=== PATIENT | female | born 1980 | race Two or more races ===

== ENCOUNTER 2018-06-30 05:09 | Inpatient (IN) | payer MEDICAID ==
[~2018-06-30] VITALS: Ht 157.5 cm; Wt 72.6 kg
[2018-06-30] MEDS ORDERED: KETOROLAC 30MG/ML VIAL IV ONE (06:15)
[2018-06-30] MEDS ORDERED: ONDANSETRON HCL 4MG/2ML INJ IV ONE (06:15)
[2018-06-30] MEDS ORDERED: SODIUM CHLORIDE 0.9% 1,000 ML IV ONE (06:30)
[2018-06-30 07:32] LABS: BASOPHILS % 0.4 % (0.0-2.0); EOSINOPHILS % 0.4 % (0.0-5.0); HEMATOCRIT. 40.4 % (36.0-48.0); HEMOGLOBIN. 13.8 g/dL (12.0-16.0); LYMPHOCYTES % 10.8 % (20.0-50.0); MEAN CORPUSCULAR HEMOGLOBIN 33.3 pg (28.0-32.0); MEAN CORPUSCULAR VOLUME 97.5 fL (81.0-99.0); MEAN PLATELET VOLUME 9.4 fl (7.4-10.4); MONOCYTES % 8.8 % (2.0-8.0); NEUTROPHILS % 79.6 % (40.0-76.0); PLATELET 304 x1000/uL (130-400); RED BLOOD CELL COUNT 4.14 mill/uL (4.2-5.4); RED CELL DISTRIBUTION WIDTH 13.1 % (11.6-14.6)
[2018-06-30 07:34] LABS: CHLORIDE 103 mEq/L (98-107)
[2018-06-30 07:42] LABS: CLARITY URINE CLEAR (CLEAR); COLOR URINE YELLOW (YELLOW); KETONES URINE NEGATIVE (NEGATIVE); LEUKOCYTE ESTERASE URINE NEGATIVE (NEGATIVE); NITRITE URINE NEGATIVE (NEGATIVE); OCCULT BLOOD URINE NEGATIVE (NEGATIVE); PH URINE 5.5 (4.5-8.0); PROTEIN URINE 2+ (NEGATIVE); UROBILINOGEN URINE 0.2 E.U./dL (0.2-1.0)
[2018-06-30] MEDS ORDERED: MORPHINE SULFATE 4 MG/ML CPJ (NOT FOR IM USE) IV ONE ×2 (11:30→13:15)
[2018-06-30] MEDS ORDERED: MORPHINE SULFATE 10 MG/ML CPJ IV NR (12:47)
[2018-06-30] MEDS ORDERED: PIPERACILLIN/TAZ 3.375G PREMIX 50 ML IV ONE (13:15)
[2018-06-30] MEDS ORDERED: ACETAMINOPHEN 325MG TABLET PO PRN (14:45)
[2018-06-30] MEDS ORDERED: HYDROMORPHONE HCL/PF 2MG/ML CPJ IV PRN (17:00)
[2018-06-30 17:20] VITALS: BP 120/79
[2018-06-30] MEDS: SODIUM CHLORIDE 0.9% 1,000 ML IV SCH (17:42)
[2018-06-30] MEDS: ONDANSETRON HCL 4MG/2ML INJ IV PRN (17:57)
[2018-06-30] MEDS: HYDROCODONE/ACETAMINOPHEN 5/325MG TABLET PO PRN (17:57)
[2018-06-30] MEDS ORDERED: CEFTRIAXONE 1 G PREMIX 50 ML IV SCH (18:30)
[2018-06-30 20:07] VITALS: BP 133/85
[2018-07-01] VITALS: BP 110/50
[2018-07-01 04:00] VITALS: BP 125/70
[2018-07-01] MEDS: SODIUM CHLORIDE 0.9% 1,000 ML IV SCH ×2 (05:11→18:04)
[2018-07-01] MEDS: ONDANSETRON HCL 4MG/2ML INJ IV PRN ×2 (05:21→11:42)
[2018-07-01] MEDS: HYDROCODONE/ACETAMINOPHEN 5/325MG TABLET PO PRN ×2 (05:23→11:52)
[2018-07-01 06:42] LABS: BASOPHILS % 0.5 % (0.0-2.0); HEMATOCRIT. 37.5 % (36.0-48.0); HEMOGLOBIN. 12.9 g/dL (12.0-16.0); LYMPHOCYTES % 21.2 % (20.0-50.0); MEAN CORPUSCULAR HEMOGLOBIN 33.5 pg (28.0-32.0); MEAN CORPUSCULAR VOLUME 97.9 fL (81.0-99.0); MONOCYTES % 9.1 % (2.0-8.0); NEUTROPHILS % 68.2 % (40.0-76.0); PLATELET 283 x1000/uL (130-400); RED BLOOD CELL COUNT 3.84 mill/uL (4.2-5.4); RED CELL DISTRIBUTION WIDTH 12.8 % (11.6-14.6)
[2018-07-01 08:00] VITALS: BP 106/62
[2018-07-01 12:00] VITALS: BP 124/82
[2018-07-01] MEDS ORDERED: POTASSIUM CHLORIDE 20MEQ TABLET SR PO NR ×2 (15:30→17:45)
[2018-07-01 20:00] VITALS: BP 140/98
[2018-07-01] MEDS: CYCLOBENZAPRINE 10MG TABLET PO SCH (21:32)
[2018-07-02] VITALS: BP 122/84
[2018-07-02 01:09] LABS: CLARITY URINE CLEAR (CLEAR); COLOR URINE YELLOW (YELLOW); KETONES URINE NEGATIVE (NEGATIVE); LEUKOCYTE ESTERASE URINE NEGATIVE (NEGATIVE); NITRITE URINE NEGATIVE (NEGATIVE); OCCULT BLOOD URINE NEGATIVE (NEGATIVE); PROTEIN URINE NEGATIVE (NEGATIVE); SPECIFIC GRAVITY URINE 1.009 (1.005-1.030); UROBILINOGEN URINE 0.2 E.U./dL (0.2-1.0)
[2018-07-02 01:31] LABS: *AMPHETAMINES SCREEN URINE NEGATIVE (NEGATIVE); *BARBITURATES SCREEN URINE NEGATIVE (NEGATIVE); *BENZODIAZEPINES SCREEN URINE NEGATIVE (NEGATIVE); *COCAINE SCREEN URINE NEGATIVE (NEGATIVE); METHADONE URINE SCREEN NEGATIVE (NEGATIVE)
[2018-07-02 01:32] LABS: CANNABINOID URINE SCREEN NEGATIVE (NEGATIVE); PHENCYCLIDINE URINE SCREEN NEGATIVE (NEGATIVE)
[2018-07-02 01:33] LABS: OPIATES URINE SCREEN PRESUMTIVE POSITIVE (NEGATIVE)
[2018-07-02] MEDS: SODIUM CHLORIDE 0.9% 1,000 ML IV SCH ×3 (02:17→17:42)
[2018-07-02 04:00] VITALS: BP 121/78
[2018-07-02] MEDS: CYCLOBENZAPRINE 10MG TABLET PO SCH ×3 (05:30→21:21)
[2018-07-02 07:00] VITALS: BP 109/81
[2018-07-02 07:37] LABS: BASOPHILS % 0.7 % (0.0-2.0); EOSINOPHILS % 1.5 % (0.0-5.0); HEMATOCRIT. 37.6 % (36.0-48.0); HEMOGLOBIN. 12.5 g/dL (12.0-16.0); LYMPHOCYTES % 24.6 % (20.0-50.0); MEAN CORPUSCULAR HEMOGLOBIN 32.7 pg (28.0-32.0); MEAN CORPUSCULAR VOLUME 98.4 fL (81.0-99.0); MEAN PLATELET VOLUME 9.2 fl (7.4-10.4); MONOCYTES % 10.7 % (2.0-8.0); NEUTROPHILS % 62.5 % (40.0-76.0); PLATELET 271 x1000/uL (130-400); RED BLOOD CELL COUNT 3.82 mill/uL (4.2-5.4); RED CELL DISTRIBUTION WIDTH 12.9 % (11.6-14.6)
[2018-07-02 09:45] LABS: PHOSPHORUS 3.4 mg/dL (2.5-4.9)
[2018-07-02 12:00] VITALS: BP 122/89
[2018-07-02 16:00] VITALS: BP 146/89
[2018-07-02 20:00] VITALS: BP 143/91
[2018-07-03] VITALS: BP 114/83
[2018-07-03] MEDS: SODIUM CHLORIDE 0.9% 1,000 ML IV SCH ×2 (03:18→10:16)
[2018-07-03 04:00] VITALS: BP 120/67
[2018-07-03] MEDS: CYCLOBENZAPRINE 10MG TABLET PO SCH ×2 (05:34→14:17)
[2018-07-03] MEDS: HYDROCODONE/ACETAMINOPHEN 5/325MG TABLET PO PRN ×2 (07:36→11:50)
[2018-07-03 08:00] VITALS: BP 114/65
[2018-07-03 10:38] LABS: CHLORIDE 105 mEq/L (98-107)
[2018-07-03 12:00] VITALS: BP 103/65
[2018-07-03 12:45] VITALS: BP 103/65
[2018-07-03] MEDS ORDERED: HYDR-4001 PO (13:02)
[2018-07-04 10:10] LABS: ANA IFA Negative (.)
== END 2018-07-03 15:25 | disposition home or self-care (01) | DRG 469 ==
LOC: ER 12:00 → 6EST 13:38 → ENRESERV 14:52
PROVIDERS: ADMIT Internal Medicine; ATTEND Internal Medicine
DX: N17.9 Acute kidney failure, unspecified (principal); R65.11 Systemic inflammatory response syndrome (SIRS) of non-infectious origin with acute organ dysfunction; K76.0 Fatty (change of) liver, not elsewhere classified; E27.49 Other adrenocortical insufficiency; M43.06 Spondylolysis, lumbar region; N12 Tubulo-interstitial nephritis, not specified as acute or chronic; L53.8 Other specified erythematous conditions; E87.6 Hypokalemia; G89.29 Other chronic pain; N83.201 Unspecified ovarian cyst, right side; Z87.442 Personal history of urinary calculi; Z98.51 Tubal ligation status
CPT/HCPCS: 36415; 72128; 72131; 74176; 76770; 76830; 76856; 80048; 80305; 82570; 83735; 84100; 84145; 84156; 84300; 85651; 86256; 96361; 96374; 96375; 99285; J0696; J1885; J2270; J2405; J2543; J7030

== ENCOUNTER 2018-07-24 20:04 | Emergency (ER) | payer MEDICAID ==
[~2018-07-24] VITALS: Ht 157.5 cm; Wt 66.0 kg
[~2018-07-24 20:04] MED LIST: HYDR-4001 PO
[2018-07-24 22:05] LABS: CLARITY URINE CLEAR (CLEAR); COLOR URINE YELLOW (YELLOW); KETONES URINE NEGATIVE (NEGATIVE); LEUKOCYTE ESTERASE URINE NEGATIVE (NEGATIVE); NITRITE URINE NEGATIVE (NEGATIVE); OCCULT BLOOD URINE NEGATIVE (NEGATIVE); PROTEIN URINE NEGATIVE (NEGATIVE); SPECIFIC GRAVITY URINE 1.007 (1.005-1.030); UROBILINOGEN URINE 0.2 E.U./dL (0.2-1.0)
[2018-07-25 01:39] LABS: BASOPHILS % 0.4 % (0.0-2.0); EOSINOPHILS % 0.9 % (0.0-5.0); HEMATOCRIT. 39.2 % (36.0-48.0); HEMOGLOBIN. 13.3 g/dL (12.0-16.0); LYMPHOCYTES % 23.6 % (20.0-50.0); MEAN CORPUSCULAR HEMOGLOBIN 32.7 pg (28.0-32.0); MEAN CORPUSCULAR VOLUME 96.6 fL (81.0-99.0); MEAN PLATELET VOLUME 8.9 fl (7.4-10.4); MONOCYTES % 10.7 % (2.0-8.0); NEUTROPHILS % 64.4 % (40.0-76.0); PLATELET 296 x1000/uL (130-400); RED BLOOD CELL COUNT 4.05 mill/uL (4.2-5.4); RED CELL DISTRIBUTION WIDTH 12.4 % (11.6-14.6)
[2018-07-25 01:46] LABS: CHLORIDE 109 mEq/L (98-107)
[2018-07-25] MEDS ORDERED: HYDROCODONE/ACETAMINOPHEN 5/325MG TABLET PO ONE (03:30)
[2018-07-25 05:49] VITALS: BP 145/83
== END 2018-07-25 05:52 | disposition home or self-care (01) ==
LOC: ER 20:04
DX: M54.5 Low back pain (principal); R10.9 Unspecified abdominal pain; Z86.73 Personal history of transient ischemic attack (TIA), and cerebral infarction without residual deficits; Z87.440 Personal history of urinary (tract) infections; Z98.51 Tubal ligation status; Z79.899 Other long term (current) drug therapy
CPT/HCPCS: 36415; 74176; 81025; 83605; 99284

== ENCOUNTER 2018-08-12 19:13 | Emergency (ER) | payer MEDICAID ==
[~2018-08-12] VITALS: Ht 160 cm; Wt 65.0 kg
[2018-08-13] MEDS ORDERED: SODIUM CHLORIDE 0.9% 1,000 ML IV ONE (06:31)
[2018-08-13] MEDS ORDERED: ONDANSETRON HCL 4MG/2ML INJ IV ONE (06:45)
[2018-08-13] MEDS ORDERED: MORPHINE SULFATE 2 MG/ML CPJ (NOT FOR IM USE) IV ONE (06:45)
[2018-08-13 06:55] LABS: CLARITY URINE CLEAR (CLEAR); COLOR URINE YELLOW (YELLOW); KETONES URINE NEGATIVE (NEGATIVE); LEUKOCYTE ESTERASE URINE NEGATIVE (NEGATIVE); NITRITE URINE NEGATIVE (NEGATIVE); OCCULT BLOOD URINE NEGATIVE (NEGATIVE); PH URINE 6.5 (4.5-8.0); PROTEIN URINE NEGATIVE (NEGATIVE); UROBILINOGEN URINE 0.2 E.U./dL (0.2-1.0)
[2018-08-13 07:12] LABS: BASOPHILS % 0.4 % (0.0-2.0); EOSINOPHILS % 0.3 % (0.0-5.0); HEMOGLOBIN. 13.3 g/dL (12.0-16.0); LYMPHOCYTES % 16.2 % (20.0-50.0); MEAN CORPUSCULAR HEMOGLOBIN 33.4 pg (28.0-32.0); MEAN CORPUSCULAR VOLUME 95.8 fL (81.0-99.0); MONOCYTES % 8.4 % (2.0-8.0); NEUTROPHILS % 74.7 % (40.0-76.0); PLATELET 340 x1000/uL (130-400); RED BLOOD CELL COUNT 3.97 mill/uL (4.2-5.4); RED CELL DISTRIBUTION WIDTH 12.9 % (11.6-14.6)
[2018-08-13] MEDS ORDERED: MORPHINE SULFATE 4 MG/ML CPJ (NOT FOR IM USE) IV NR (07:15)
[2018-08-13] MEDS ORDERED: MINERAL OIL ENEMA 133ML PR ONE (07:15)
[2018-08-13 07:16] LABS: CHLORIDE 106 mEq/L (98-107)
[2018-08-13 07:20] LABS: PROTHROMBIN TIME 10.3 sec (9.1-11.1)
[2018-08-13 07:29] LABS: HCG SCREEN NEGATIVE
[2018-08-13] MEDS ORDERED: POTASSIUM CHLORIDE 20MEQ TABLET SR PO ONE (07:30)
[2018-08-13] MEDS ORDERED: NA PHOS,M-B/NA PHOS,DI-BA ENEMA 118ML PR ONE (11:45)
[2018-08-13 13:00] VITALS: BP 124/88
== END 2018-08-13 13:00 | disposition home or self-care (01) ==
LOC: ER 19:13
DX: K59.00 Constipation, unspecified (principal); E87.6 Hypokalemia; Z98.51 Tubal ligation status
CPT/HCPCS: 36415; 74018; 80053; 81003; 81025; 83690; 84132; 84703; 85025; 85610; 96374; 99284; J2270; J2405; J7030; Z7610

== ENCOUNTER 2018-09-23 13:05 | Emergency (ER) | payer MEDICAID ==
[~2018-09-23] VITALS: Ht 160 cm; Wt 61.0 kg
[2018-09-23 13:50] VITALS: BP 133/74
== END 2018-09-23 17:23 | disposition left against medical advice (07) ==
LOC: ER 13:05
DX: R50.9 Fever, unspecified (principal); Z53.21 Procedure and treatment not carried out due to patient leaving prior to being seen by health care provider

== ENCOUNTER 2018-09-30 15:24 | Emergency (ER) | payer MEDICAID ==
[~2018-09-30] VITALS: Ht 160 cm; Wt 62.0 kg
[2018-09-30 18:39] LABS: BASOPHILS % 0.8 % (0.0-2.0); CHLORIDE 105 mEq/L (98-107); HEMATOCRIT. 40.7 % (36.0-48.0); HEMOGLOBIN. 14.3 g/dL (12.0-16.0); LYMPHOCYTES % 32.1 % (20.0-50.0); MEAN CORPUSCULAR VOLUME 96.6 fL (81.0-99.0); MEAN PLATELET VOLUME 9.5 fl (7.4-10.4); MONOCYTES % 10.1 % (2.0-8.0); PLATELET 289 x1000/uL (130-400); RED BLOOD CELL COUNT 4.22 mill/uL (4.2-5.4)
[2018-09-30 18:43] LABS: CLARITY URINE CLEAR (CLEAR); COLOR URINE YELLOW (YELLOW); KETONES URINE NEGATIVE (NEGATIVE); LEUKOCYTE ESTERASE URINE NEGATIVE (NEGATIVE); NITRITE URINE NEGATIVE (NEGATIVE); OCCULT BLOOD URINE 1+ (NEGATIVE); PH URINE 7.5 (4.5-8.0); PROTEIN URINE NEGATIVE (NEGATIVE); SPECIFIC GRAVITY URINE 1.002 (1.005-1.030); UROBILINOGEN URINE 0.2 E.U./dL (0.2-1.0)
[2018-09-30] MEDS ORDERED: SODIUM CHLORIDE 0.9% 1,000 ML IV ONE (18:43)
[2018-09-30] MEDS ORDERED: KETOROLAC 30MG/ML VIAL IV STA (18:43)
[2018-09-30] MEDS ORDERED: ONDANSETRON HCL 4MG/2ML INJ IV ONE (18:45)
[2018-09-30 19:10] LABS: PROTHROMBIN TIME 10.1 sec (9.6-11.0)
[2018-09-30 19:23] LABS: B-HCG QUANTITATIVE < 1 mIU/mL (<3)
[2018-09-30] MEDS ORDERED: MAGNESIUM CITRATE 300ML SOLUTION PO NR (20:00)
[2018-09-30] MEDS ORDERED: POLYETHYLENE GLYCOL 3350 (17GM) 1 DOSE PACK PO NR (20:30)
[2018-09-30] MEDS ORDERED: GLYCERIN ADULT SUPPOSITORY PR NR (20:30)
[2018-10-01 00:31] VITALS: BP 133/79
== END 2018-10-01 00:31 | disposition home or self-care (01) ==
LOC: ER 15:24
DX: K59.00 Constipation, unspecified (principal); R10.32 Left lower quadrant pain; Z98.51 Tubal ligation status
CPT/HCPCS: 36415; 74176; 80053; 81003; 83690; 84702; 85025; 85610; 87086; 96374; 96375; 99284; J1885; J2405; J7030; Z7610

== ENCOUNTER 2023-08-30 18:27 | Emergency (ER) | payer SELFPAY ==
[~2023-08-30] VITALS: Ht 162.6 cm; Wt 75.0 kg
[2023-08-30 18:40] VITALS: O2SAT 100
[2023-08-30] MEDS ORDERED: AMOX-494 MT (19:59)
[2023-08-30] MEDS ORDERED: OFLO5DRO4 LEFT EAR (20:00)
[2023-08-30] MEDS ORDERED: PECT2.8L4 MM (20:05)
[2023-08-30 20:51] VITALS: BP 140/95; PULSE 76; RESP 18; TEMP 98.5
== END 2023-08-30 20:55 | disposition home or self-care (01) ==
LOC: ER 18:27
DX: H66.92 Otitis media, unspecified, left ear (principal); J06.9 Acute upper respiratory infection, unspecified; Z98.890 Other specified postprocedural states; Z98.51 Tubal ligation status
CPT/HCPCS: 71045; 99283